=== PATIENT | female | born 1990 | race Caucasian/White ===

== ENCOUNTER 2016-10-24 23:45 | Emergency (ER) | payer SELFPAY ==
[~2016-10-24] VITALS: Ht 167.6 cm; Wt 63.5 kg
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
--- NOTE | 2016-10-25 00:48 | NUR ---
PT TO RADIOLOGY FOR LUMBAR XRAY
--- NOTE | 2016-10-25 00:58 | NUR ---
PT RETURNED FROM RADIOLOGY
[2016-10-25 01:55] VITALS: BP 124/64
== END 2016-10-25 02:11 | disposition home or self-care (01) ==
LOC: ER 23:45
DX: M54.5 Low back pain (principal); V49.50XA Passenger injured in collision with unspecified motor vehicles in traffic accident, initial encounter; Y93.89 Activity, other specified; Y92.413 State road as the place of occurrence of the external cause; Y99.8 Other external cause status
CPT/HCPCS: 72110-TC; A4606; Z7610